=== PATIENT | male | born 1965 | race Caucasian/White ===

== ENCOUNTER 2022-01-24 21:44 | Inpatient (IN) | payer MEDICAID, OTHER ==
[~2022-01-24] VITALS: Ht 190.5 cm; Wt 77.0 kg
[2022-01-25] MEDS ORDERED: MORPHINE SULFATE INJ 2 MG/ml SYRG IM ONE ×2 (08:00→09:30)
[2022-01-25] MEDS ORDERED: ONDANSETRON ODT 4 MG TAB PO ONE (08:00)
[2022-01-25] MEDS ORDERED: ACETAMINOPHEN/CODEINE#3 (300/30mg) TAB PO ONE (08:00)
[2022-01-25] MEDS ORDERED: FAMOTIDINE (10MG/ML) 2ML VL IV ONE (10:45)
[2022-01-25] MEDS ORDERED: KETOROLAC TROMETH 30 MG/ML 1ML VIAL IV ONE (10:45)
[2022-01-25 11:38] LABS: Basophils # (auto) 0.1 10 ^3/uL (0-0.2); Basophils % (auto) 0.8 % (0.0-2.0); Eosinophils # (auto) 0.1 10 ^3/uL (0-0.8); Eosinophils % (auto) 1.8 % (0.0-7.0); Hematocrit 45.8 % (41.0-53.0); Hemoglobin 15.7 g/dL (13.5-17.5); Lymphocytes # (auto) 1.7 10 ^3/uL (0.4-5.4); Lymphocytes % (auto) 24.1 % (10.0-50.0); Mean Corpuscular Hemoglobin 29.3 pg (28.0-32.0); Mean Corpuscular Hgb Conc. 34.2 g/dL (32.0-36.0); Mean Corpuscular Volume 85.6 fL (80.0-100.0); Monocytes # (auto) 0.5 10 ^3/uL (0-1.3); Monocytes % (auto) 7.8 % (0.0-12.0); Neutrophils # (auto) 4.6 10 ^3/uL (1.6-8.6); Neutrophils % (auto) 65.5 % (37.0-80.0); Nucleated Red Blood Cells % 0.3 %; Red Blood Cells 5.35 10^6/uL (4.5-5.90); Red Cell Distribution Width 13.2 % (11.8-14.3)
[2022-01-25 11:55] LABS: INR 1.09 (0.9-1.15)
[2022-01-25 12:32] LABS: Albumin 3.7 g/dL (3.4-5.0); Calcium 9.1 mg/dL (8.5-10.1)
[2022-01-25 12:35] LABS: BUN/Creatinine Ratio 27.9
[2022-01-25 12:37] LABS: Bilirubin, Total 0.7 mg/dL (0.2-1.0); Total Protein 6.8 g/dL (6.4-8.2)
[2022-01-25] MEDS ORDERED: MORPHINE SULFATE INJ 2 MG/ml SYRG IV PRN ×2 (14:30→15:30)
[2022-01-25] MEDS ORDERED: NITROGLYCERIN 0.4 MG SL TAB SL PRN (14:30)
[2022-01-25] MEDS ORDERED: KETOROLAC TROMETH 30 MG/ML 1ML VIAL IV PRN (15:30)
[2022-01-25] MEDS ORDERED: hydrALAZINE HCL 20 MG/ML VL IV PRN (15:30)
[2022-01-25] MEDS ORDERED: DOCUSATE SOD 100 MG CAP PO PRN (15:30)
[2022-01-25] MEDS ORDERED: LORazepam 0.5 MG TAB PO PRN (15:30)
[2022-01-25] MEDS ORDERED: LACTATED RINGER'S 1,000 ML IV ONE (15:30)
[2022-01-25] MEDS ORDERED: ONDANSETRON HCL 4 MG/2 ML VIAL IV PRN (15:30)
[2022-01-25] MEDS ORDERED: HYDROcodone-ACET 5/325MG TAB PO PRN (15:30)
[2022-01-25] MEDS ORDERED: MECLIZINE HCL 25 MG TAB PO PRN (15:30)
[2022-01-25] MEDS ORDERED: ACETAMINOPHEN 325 MG TAB PO PRN (15:30)
[2022-01-25] MEDS: SODIUM CHLORIDE 0.9% 1,000 ML IV SCH (16:21)
[2022-01-25 16:54] LABS: Magnesium 2.4 mg/dL (1.6-2.6); Phosphorus 3.4 mg/dL (2.5-4.90)
[2022-01-25 18:30] VITALS: BP 115/68
[2022-01-25 18:34] LABS: INR 1.06 (0.9-1.15)
[2022-01-25] MEDS ORDERED: LORazepam 2MG/ML-1ML VIAL IV PRN (21:00)
[2022-01-25] MEDS: FAMOTIDINE (10MG/ML) 2ML VL IV SCH (21:57)
[2022-01-25] MEDS: VALPROIC ACID 250 MG/5 ML ORAL SOLN PO SCH (21:57)
[2022-01-25 22:00] VITALS: BP 115/65
[2022-01-25] MEDS: SENNA 8.6 MG TAB PO SCH (22:00)
[2022-01-25] MEDS: AMITRIPTYLINE HCL 25 MG TAB PO SCH (22:00)
[2022-01-26 05:00] VITALS: BP 102/49
[2022-01-26 05:20] LABS: Basophils # (auto) 0 10 ^3/uL (0-0.2); Basophils % (auto) 0.7 % (0.0-2.0); Eosinophils # (auto) 0.2 10 ^3/uL (0-0.8); Eosinophils % (auto) 2.7 % (0.0-7.0); Hematocrit 40.8 % (41.0-53.0); Hemoglobin 14.4 g/dL (13.5-17.5); Lymphocytes # (auto) 1.8 10 ^3/uL (0.4-5.4); Lymphocytes % (auto) 25.8 % (10.0-50.0); Mean Corpuscular Hemoglobin 29.7 pg (28.0-32.0); Mean Corpuscular Hgb Conc. 35.2 g/dL (32.0-36.0); Mean Corpuscular Volume 84.3 fL (80.0-100.0); Monocytes # (auto) 0.5 10 ^3/uL (0-1.3); Monocytes % (auto) 7.2 % (0.0-12.0); Neutrophils # (auto) 4.4 10 ^3/uL (1.6-8.6); Neutrophils % (auto) 63.6 % (37.0-80.0); Nucleated Red Blood Cells % 0.1 %; Red Blood Cells 4.84 10^6/uL (4.5-5.90); Red Cell Distribution Width 12.9 % (11.8-14.3); White Blood Cell 6.9 10^3/uL (4.4-10.8)
[2022-01-26 05:41] LABS: INR 1.1 (0.9-1.15); Partial Thromboplastin Time 28.8 sec (23.6-33.0)
[2022-01-26 05:45] LABS: Albumin 3.4 g/dL (3.4-5.0); Calcium 8.5 mg/dL (8.5-10.1); Magnesium 2.2 mg/dL (1.6-2.6)
[2022-01-26 05:50] LABS: BUN/Creatinine Ratio 36.1; Bilirubin, Total 0.4 mg/dL (0.2-1.0); CRP High Sensitivity 0.11 mg/dL (< 0.3); Phosphorus 4.2 mg/dL (2.5-4.90); Total Protein 6.2 g/dL (6.4-8.2); Uric Acid 4.8 mg/dL (3.5-7.2)
[2022-01-26] MEDS: VALPROIC ACID 250 MG/5 ML ORAL SOLN PO SCH ×3 (05:58→21:04)
[2022-01-26] MEDS: SODIUM CHLORIDE 0.9% 1,000 ML IV SCH (05:58)
[2022-01-26] MEDS: ENOXAPARIN SOD 40 MG/0.4 ML SYRINGE SC SCH (10:18)
[2022-01-26] MEDS: ASPirin 81 mg TAB PO SCH (10:18)
[2022-01-26 13:09] VITALS: BP 115/60
[2022-01-26] MEDS ORDERED: GADOTERATE MEG 10 MMOL/20ml INJ (0.5MMOL/ml) IV ONE (14:58)
[2022-01-26 17:00] VITALS: BP 127/65
[2022-01-26] MEDS: SENNA 8.6 MG TAB PO SCH (21:04)
[2022-01-26] MEDS: AMITRIPTYLINE HCL 25 MG TAB PO SCH (21:04)
[2022-01-26 22:00] VITALS: BP 107/60
[2022-01-26 23:22] LABS: Urine WBC None Seen /hpf (0 - 3)
[2022-01-26 23:38] LABS: Urine Bacteria NONE SEEN /hpf (None Seen); Urine Blood Negative /uL (Negative); Urine Specific Gravity 1.006 (1.001-1.035)
[2022-01-26 23:55] LABS: Amphetamine Screen, Urine NEGATIVE (NEGATIVE); Barbiturate Scree,Urine NEGATIVE (NEGATIVE); Benzodiazephine Screen, Urine NEGATIVE (NEGATIVE); Cannabinoid Screen, Urine NEGATIVE (NEGATIVE); Cocaine Screen, Urine NEGATIVE (NEGATIVE); Opiate Scree,Urine NEGATIVE (NEGATIVE); Phencyclidine Screen, Urine NEGATIVE (NEGATIVE); Protein, Urine 5.1 mg/dL (0.0-11.9)
[2022-01-27] MEDS: SODIUM CHLORIDE 0.9% 1,000 ML IV SCH ×2 (00:50→17:30)
[2022-01-27 05:00] VITALS: BP 103/52
[2022-01-27] MEDS: VALPROIC ACID 250 MG/5 ML ORAL SOLN PO SCH ×3 (06:00→21:11)
[2022-01-27] MEDS: ASPirin 81 mg TAB PO SCH (09:21)
[2022-01-27] MEDS: FAMOTIDINE (10MG/ML) 2ML VL IV SCH (09:22)
[2022-01-27] MEDS: ENOXAPARIN SOD 40 MG/0.4 ML SYRINGE SC SCH (09:22)
[2022-01-27 09:38] VITALS: BP 113/59
[2022-01-27 13:45] VITALS: BP 107/58
[2022-01-27 17:06] VITALS: BP 130/65
[2022-01-27] MEDS: AMITRIPTYLINE HCL 25 MG TAB PO SCH (21:11)
[2022-01-27] MEDS: SENNA 8.6 MG TAB PO SCH (21:11)
[2022-01-27 22:00] VITALS: BP 115/58
[2022-01-28] MEDS: VALPROIC ACID 250 MG/5 ML ORAL SOLN PO SCH ×3 (05:36→21:58)
[2022-01-28 05:58] VITALS: BP 111/62
[2022-01-28 09:00] VITALS: BP 102/60
[2022-01-28] MEDS: FAMOTIDINE (10MG/ML) 2ML VL IV SCH (10:05)
[2022-01-28] MEDS: ENOXAPARIN SOD 40 MG/0.4 ML SYRINGE SC SCH (10:05)
[2022-01-28] MEDS: ASPirin 81 mg TAB PO SCH (10:06)
[2022-01-28] MEDS: SODIUM CHLORIDE 0.9% 1,000 ML IV SCH (10:30)
[2022-01-28 13:00] VITALS: BP 111/64
[2022-01-28 17:00] VITALS: BP 111/60
[2022-01-28] MEDS: AMITRIPTYLINE HCL 25 MG TAB PO SCH (21:58)
[2022-01-28] MEDS: SENNA 8.6 MG TAB PO SCH (21:58)
[2022-01-28 22:00] VITALS: BP 105/56
[2022-01-29] MEDS: SODIUM CHLORIDE 0.9% 1,000 ML IV SCH ×2 (02:50→22:08)
[2022-01-29 05:00] VITALS: BP 108/65
[2022-01-29] MEDS: VALPROIC ACID 250 MG/5 ML ORAL SOLN PO SCH ×3 (05:51→22:00)
[2022-01-29 09:00] VITALS: BP 98/58
[2022-01-29] MEDS: ENOXAPARIN SOD 40 MG/0.4 ML SYRINGE SC SCH (10:00)
[2022-01-29] MEDS: ASPirin 81 mg TAB PO SCH (11:08)
[2022-01-29] MEDS: FAMOTIDINE (10MG/ML) 2ML VL IV SCH (11:08)
[2022-01-29 13:00] VITALS: BP 117/67
[2022-01-29] MEDS ORDERED: DOCUSATE ORAL LIQUID 100 MG/10 ML UD PO PRN (16:45)
[2022-01-29 17:00] VITALS: BP 99/50
[2022-01-29] MEDS: Ensure HIGH Protein Chocolate 8oz Bottle PO SCH (18:00)
[2022-01-29 22:00] VITALS: BP 116/58
[2022-01-29] MEDS: SENNA 8.6 MG TAB PO SCH (22:00)
[2022-01-29] MEDS: AMITRIPTYLINE HCL 25 MG TAB PO SCH (22:00)
[2022-01-30 05:00] VITALS: BP 105/56
[2022-01-30] MEDS: VALPROIC ACID 250 MG/5 ML ORAL SOLN PO SCH ×2 (05:34→13:43)
[2022-01-30 08:30] VITALS: BP 108/61
[2022-01-30] MEDS: Ensure HIGH Protein Chocolate 8oz Bottle PO SCH ×3 (08:41→18:25)
[2022-01-30] MEDS: ENOXAPARIN SOD 40 MG/0.4 ML SYRINGE SC SCH (10:00)
[2022-01-30] MEDS: ASPirin 81 mg TAB PO SCH (10:32)
[2022-01-30] MEDS: FAMOTIDINE (10MG/ML) 2ML VL IV SCH (10:32)
[2022-01-30] MEDS: SODIUM CHLORIDE 0.9% 1,000 ML IV SCH (11:12)
[2022-01-30 12:30] VITALS: BP 104/55
[2022-01-30 16:30] VITALS: BP 115/59
[2022-01-30 16:49] VITALS: BP 104/55
== END 2022-01-30 18:58 | DRG 54 ==
LOC: EDBD 21:44 → ER 21:44 → OVERFLOW 01-25 14:19 → WEST WING 01-25 18:49
PROVIDERS: ADMIT Hospitalist; ATTEND Family Medicine
DX: R51.9 Headache, unspecified (principal); D69.6 Thrombocytopenia, unspecified; F07.81 Postconcussional syndrome; G81.91 Hemiplegia, unspecified affecting right dominant side; G90.8 Other disorders of autonomic nervous system; E11.9 Type 2 diabetes mellitus without complications; F43.10 Post-traumatic stress disorder, unspecified; R47.01 Aphasia; F32.9 Major depressive disorder, single episode, unspecified; Z80.0 Family history of malignant neoplasm of digestive organs; Z82.49 Family history of ischemic heart disease and other diseases of the circulatory system; Z87.820 Personal history of traumatic brain injury; Z87.891 Personal history of nicotine dependence
CPT/HCPCS: 36415; 70360; 70450; 70553; 80053; 80061; 80307; 81001; 82550; 82728; 83036; 83615; 83690; 83735; 83880; 84100; 84156; 84443; 84484; 84550; 85025; 85379; 85610; 85652; 85730; 86141; 87040; 87086; 92523; 92610; 93005; 96372; 96374; 96375; 97163; G0378; J1885; J3490; Q0162

== ENCOUNTER 2022-03-22 19:23 | Emergency (ER) | payer MEDICAID ==
[~2022-03-22] VITALS: Ht 193 cm; Wt 74.8 kg
[2022-03-22 19:31] VITALS: BP 122/74
[2022-03-22 20:06] LABS: Basophils # (auto) 0.1 10 ^3/uL (0-0.2); Basophils % (auto) 0.9 % (0.0-2.0); Eosinophils # (auto) 0.2 10 ^3/uL (0-0.8); Eosinophils % (auto) 2.1 % (0.0-7.0); Hematocrit 44.5 % (41.0-53.0); Hemoglobin 14.9 g/dL (13.5-17.5); Lymphocytes # (auto) 2.2 10 ^3/uL (0.4-5.4); Mean Corpuscular Hemoglobin 28.9 pg (28.0-32.0); Mean Corpuscular Hgb Conc. 33.6 g/dL (32.0-36.0); Monocytes # (auto) 0.6 10 ^3/uL (0-1.3); Monocytes % (auto) 6.4 % (0.0-12.0); Neutrophils # (auto) 6.2 10 ^3/uL (1.6-8.6); Neutrophils % (auto) 66.6 % (37.0-80.0); Nucleated Red Blood Cells % 0.2 %; Red Blood Cells 5.17 10^6/uL (4.5-5.90); White Blood Cell 9.3 10^3/uL (4.4-10.8)
[2022-03-22 20:21] LABS: Albumin 3.7 g/dL (3.4-5.0); Calcium 8.7 mg/dL (8.5-10.1); Potassium 3.8 mmol/L (3.5-5.1)
[2022-03-22 20:24] LABS: Bilirubin, Total 0.6 mg/dL (0.2-1.0); Total Protein 6.6 g/dL (6.4-8.2)
== END 2022-03-23 | disposition home or self-care (01) ==
LOC: EDBD 19:23 → ER 19:23
DX: R42 Dizziness and giddiness (principal)
CPT/HCPCS: 36415; 70450; 80053; 83880; 84484; 85025; 93005